=== PATIENT | male | born 1975 | race Caucasian/White ===

== ENCOUNTER 2019-06-18 23:37 | Emergency (ER) | payer BC, MEDICAID ==
[2019-06-18] MEDS ORDERED: PROPARACAINE HCL OPTH 15ML BTL OPTH ONE (23:43)
--- NOTE | 2019-06-19 00:03 | Emergency Department Record ---
History of Present Illness - General Chief complaint: Eye Problem Stated complaint: EYE IRRITATION Time Seen by Provider: 06/18/19 23:56 Source: Patient Mode of Arrival: Ambulatory Limitations: No limitations - History of Present Illness Initial comments: Pt to the ED with issue with left eye for 7 days. Seen in ED in [place] and given AB drops and Toradol eye drops without resolution. Continues to water and feel as if something is in the eye. 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 Wears safety glasses. No know event with injury or FB to eye. No change in vision. Has seen [facility] T[facility] in the past for FB to cornea. -: Days(s) Onset Description: Gradual Location: Left eye Place: Other Eye Symptoms: Blurry vision, Other Severity: Mild Consistency: Constant Context: Other Associated Symptoms: None Treatments Prior to Arrival: Other - Related Data Visual acuity (L) = 20/: 20 Visual acuity (R) = 20/: 20 With correction: No Allergies Allergy/AdvReac Type Severity Reaction Status Date / Time No Known Drug Allergies Allergy Unverified 01/13/19 12:11 Travel Screening - Travel/Exposure Within Last 30 Days Have you traveled within the last 30 days?: No - Travel Symptoms Symptom Screening: None Review of Systems Constitutional: Denies: Chills, Fever Eyes: Reports: As per HPI ENT: Denies: Congestion, Ear pain Respiratory: Denies: Cough Cardiovascular: Denies: Arrhythmia, Syncope Endocrine: Denies: Fatigue Gastrointestinal: Denies: Abdominal pain Musculoskeletal: Denies: Arthralgia Skin: Denies: Rash Neurological: Denies: Headache, Tingling Psychiatric: Denies: Anxiety Past Medical History - SOCIAL HISTORY Smoking Status: Never smoker Alcohol Use: Rare Drug Use: None - RESPIRATORY Hx Respiratory Disorders: No - CARDIOVASCULAR Hx Cardio Disorders: No - NEURO Hx Neuro Disorders: No - GI Hx GI Disorders: No - Hx Genitourinary Disorders: No - ENDOCRINE Hx Endocrine Disorders: No - MUSCULOSKELETAL Hx Musculoskeletal Disorders: No - PSYCH Hx Psych Problems: No - HEMATOLOGY/ONCOLOGY Hx Hematology/Oncology Disorders: No Family Medical History Any Significant Family History?: No Family Hx Comment (NOT TO BE USED IN PLACE OF ITEMS BELOW): denies Physical Exam - General General Appearance: Alert, Oriented x3, Cooperative, No acute distress - Head Head exam: Atraumatic - Eye Eye exam: PERRL, EOMI. negative: Periorbital swelling, Periorbital tenderness (No lid edema. Slgiht injection OS without discharge. No lid FB on eversion upper and lower lids OS. Slit lamp after fluri strip with scattered uptake but no distinct abrasion or FB seen. Anterior chamber clear. ) With correction: No - ENT ENT exam: Mucous membranes moist, TM's normal bilaterally Nasal Exam: Normal inspection - Neck Neck exam: Normal inspection, Full ROM. negative: Tenderness - Respiratory Respiratory exam: Normal lung sounds bilaterally. negative: Respiratory distress - Neurological Neurological exam: Alert, Normal gait, Oriented X3 - Psychiatric Psychiatric exam: Normal affect, Normal mood - Skin Skin exam: Normal color Course Vital Signs 06/18/19 23:46 Temperature 97.9 F Pulse Rate [ 96 H Pulse Ox Probe] Respiratory 18 Rate Blood Pressure 128/89 [Left Arm] Pulse Ox 99 - Reevaluation(s) Reevaluation #1: 06/19/19 00:12 seen and exam. Tetracaine to OS with resolution of irritation. "Feels better". Fluri strip and slit lamp exam. No abrasion or FB with everted lids. No discharge form OS. Pt feels the Toradol drops are irritatinga nd painful. The Tobra drops are "soothing". Has seen Ophtho in past for FB removal in [place]. Can see them again. Disposition Disposition: Discharge Clinical Impression: Eye abnormality Disposition: Home, Self-Care Condition: (1) Good Instructions: Corneal Abrasion (ED) Additional Instructions: Continue to use your antibiotic eye drops - 2 drops to the left eye every 4 hours See your ABATEMENT WORKER in 1-2 days Cool compress to eye. Wear safety glasses at work Return to [facility] ED as needed. Referrals: ANGEL RAMIREZ [[email or web address]] - Forms: Patient Portal Access Time of Disposition: 00:03 Quality - Quality Measures Quality Measures: N/A - Blood Pressure Screening Does Patient Have Any of the Following: No Blood Pressure Classification: Pre-Hypertensive BP Reading Systolic Measurement: 128 Diastolic Measurement: 89 Screening for High Blood Pressure: < Pre-Hypertensive BP, F/U Documented > [[id number]] Pre-Hypertensive Follow-up Interventions: Follow-up with rescreen every year.
== END 2019-06-19 00:07 | disposition home or self-care (01) ==
LOC: ER 23:37
DX: H57.12 Ocular pain, left eye (principal); H53.8 Other visual disturbances
CPT/HCPCS: 99283